=== PATIENT | female | born 1970 | race Caucasian/White ===

== ENCOUNTER → 2016-12-04 | Outpatient (CLI) | payer MEDICARE ==
[~2016-12-04] MED LIST: AEROCHAMBER1 DEV IH; ALBUTEROL-200 PUFFS/ IH; ALBUTEROL2 PUFFS/17 IN; AMOXI/CLAVULANA1 TAB PO; AZITHROMYC200 MG/5 M PO; CYCLOBENZAPRINE10 MG PO; ESTRADIOL1 MG PO; GABAPENTIN300 MG PO; MEDROL 4MG. DOSE4 MG PO; PERCOCET 10 MG1 EACH PO
--- NOTE | 2016-12-31 12:20 | RADIOLOGY REPORT PS360 ---
DIG MAMM-SCREEN [facility] W/CAD CAD Screening ORDERING PHYSICIAN : Kyler Vital MD PATIENT AGE: 46 years GENDER: Female COMPARISON: Previous mammograms: From [facility] have arrived dated June 2015. INDICATION: Routine screening. No hormones. No new complaints. Maternal great grandmother with breast cancer TECHNIQUE: Standard CC and MLO images were obtained. R2 CAD reviewed. FINDINGS: Dense breast tissue extends towards superior breast bilaterally with dense fibro- glandular elements evident upper-outer quadrant bilaterally . Mammography is of decreased sensitivity in breast of this density. However the prior studies are helpful and show no prominent changes. No discrete or dominant mass additionally seen today. Dominant RIGHT BREAST:The areas of density at the superior right breast and towards upper-outer quadrant are similar to outside studies and this can be followed safely. I would recommend an encourage bilateral mammogram in one year. Self breast examination may also be helpful in this patient if any palpable areas arises ultrasound is useful compliment to mammography in breast of this increased density LEFT BREAST:No discrete new areas of concern. Again is similar dense breast pattern slightly nodular character is seen at the left breast most evident superiorly and with no significant new features IMPRESSION: No significant new areas of concern . Would recommend & encourage bilateral mammogram follow-up one year I would note patient has Dense breast bilaterally which decrease sensitivity of mammography. Thus Would also encourage self breast examination & if any palpable areas should arise ultrasound is useful compliment to mammography in breasts of increased density BI-RADS CATEGORY: 2_Benign RECOMMENDED FOLLOWUP: 12M 12 MONTH FOLLOW-UP (A letter has been sent to the patient regarding results of the study.) . Screening
== END ==
LOC: RAD 11-17 17:00
DX: Z12.31 Encounter for screening mammogram for malignant neoplasm of breast (principal)
CPT/HCPCS: G0202

== ENCOUNTER → 2016-12-30 | Outpatient (CLI) | payer MEDICARE ==
[2016-12-30 21:06] LABS: AMPHETAMINES/METAMPHETAMINES NEGATIVE ng/mL (<1000)
[2017-01-07 09:38] LABS: Opiates Negative (Cutoff=100)
== END ==
LOC: LAB 16:15
PROVIDERS: Emergency Medicine
DX: Z79.899 Other long term (current) drug therapy (principal)

== ENCOUNTER → 2017-03-02 | Outpatient (CLI) | payer MEDICARE ==
[2017-03-02 18:53] LABS: AMPHETAMINES/METAMPHETAMINES NEGATIVE ng/mL (<1000)
== END ==
LOC: LAB 17:43
PROVIDERS: Emergency Medicine
DX: Z79.899 Other long term (current) drug therapy (principal)